=== PATIENT | female | born 1965 ===

== ENCOUNTER 2018-11-05 18:08 | Emergency (ER) | payer SELFPAY ==
[2018-11-05 18:26] VITALS: TEMP 98.2
--- NOTE | 2018-11-05 18:49 | ED PDOC ---
HPI: Abdomen Time Seen by Provider: 11/05/18 18:32 Chief Complaint (Nursing): Abdominal Pain Chief Complaint (Provider): Abdominal Pain History Per: Patient History/Exam Limitations: no limitations Onset/Duration Of Symptoms: Days (2x) Current Symptoms Are (Timing): Still Present Severity: Moderate Associated Symptoms: denies: Fever, Nausea, Vomiting, Diarrhea, Chest Pain, Other (shortness of breath) Additional Complaint(s): 53 year old female with a past medical history of gastritis presents to the ED for an evaluation of worsening abdominal pain that started yesterday. Patient states that she has had abdominal problems "all my life". Patient was seen at [facility] yesterday, and had blood in her ultrasound imaging. Patient was told that there was something wrong with her stomach. Patient states that she was not given medication for the pain, and has been taking motrin with no relief. Patient denies having fevers, chest pain, shortness of breath, vomiting, and diarrhea. PMD: None provided. Past Medical History Reviewed: Historical Data, Nursing Documentation, Vital Signs Vital Signs: Last Vital Signs Temp 98.2 F 11/05/18 18:21 Pulse 78 11/05/18 18:21 Resp 16 11/05/18 18:21 BP 159/94 H 11/05/18 18:21 Pulse Ox 100 11/05/18 18:21 - Medical History PMH: Gastritis - Surgical History Other surgeries: ovarian cystectomy - Family History Family History: States: No Known Family Hx - Social History Current smoker - smoking cessation education provided: No Alcohol: None Drugs: Denies - Home Medications Home Medications: Ambulatory Orders Medication Instructions Recorded Gabapentin [Neurontin] 100 mg PO TID 11/07/18 Omeprazole 20 mg PO DAILY 11/07/18 oxyCODONE/Acetaminophen [Percocet 1 tab PO Q6 #20 tab 11/07/18 5/325 mg Tab] - Allergies Allergies/Adverse Reactions: Allergies Allergy/AdvReac Type Severity Reaction Status Date / Time No Known Allergies Allergy Verified 11/05/18 18:19 Review of Systems ROS Statement: Except As Marked, All Systems Reviewed And Found Negative Constitutional: Negative for: Fever Cardiovascular: Negative for: Chest Pain Respiratory: Negative for: Shortness of Breath Gastrointestinal: Positive for: Abdominal Pain. Negative for: Nausea, Vomiting, Diarrhea Physical Exam - Reviewed Nursing Documentation Reviewed: Yes Vital Signs Reviewed: Yes - Physical Exam Appears: Positive for: Well, Non-toxic, In Acute Distress (moderate painful distress) Head Exam: Positive for: ATRAUMATIC, NORMOCEPHALIC Skin: Positive for: Normal Color, Warm, Dry Cardiovascular/Chest: Positive for: Regular Rate, Rhythm Respiratory: Positive for: Normal Breath Sounds. Negative for: Respiratory Distress Gastrointestinal/Abdominal: Positive for: Tenderness (generalized, mostly in upper abdomen). Negative for: Guarding, Rebound Neurologic/Psych: Positive for: Alert, Oriented (3x) - Laboratory Results Result Diagrams: 11/05/18 18:50 11/05/18 18:50 - ECG O2 Sat by Pulse Oximetry: 100 (RA) Pulse Ox Interpretation: Normal Medical Decision Making Medical Decision Makin:32 Initial impression: 53 year old female with acute on chronic abdominal pain. Initial plan: * EKG * CMP * lipase * upreg * udip * CBC w/ diff * PT and PTT * morphine 2 mg IV * urinalysis * reevaluation 19:00 Patient is being signed out to Triston Cha MD pending CT abdomen and pelvis, and reevaluation. Scribe Attestation: Documented Vamshi Churchill, acting as a scribe for Viji Campbell MD. Provider Scribe Attestation: All medical record entries made by the Scribe were at my direction and p ersonally dictated by me. I have reviewed the chart and agree that the record accurately reflects my personal performance of the history, physical exam, medical decision making, and the department course for this patient. I have also personally directed, reviewed, and agree with the discharge instructions and disposition. Disposition - Clinical Impression Clinical Impression: Abdominal pain, Gastritis - Disposition Disposition: Transfer of Care Disposition Time: 19:00 Condition: STABLE Instructions: Gastritis (DC) Forms: [employer] (Andorran) Print Language: MACEDONIAN
[2018-11-05 19:06] LABS: BASO % 0.3 % (0.0-2.0); EOS # 0.1 K/uL (0.0-0.7); EOS % 0.7 % (0.0-4.0); HEMOGLOBIN 12.1 g/dL (12.0-16.0); LYMPH # 1.4 K/uL (1.0-4.3); MEAN CELL VOLUME 90.8 fl (81.0-99.0); MEAN CORPUSCULAR HEMOGLOBIN 30.3 pg (27.0-31.0); MEAN CORPUSCULAR HGB CONC 33.4 g/dL (33.0-37.0); MONO # 0.8 K/uL (0.0-0.8); NEUT # 6.2 K/uL (1.8-7.0); NRBC % 0.1 % (0.0-0.0); RBC 3.99 Mil/uL (3.80-5.20); WHITE BLOOD COUNT 8.5 K/uL (4.8-10.8)
--- NOTE | 2018-11-05 19:07 | ED PDOC ---
- Laboratory Results Result Diagrams: 11/05/18 18:50 11/05/18 18:50 - ECG O2 Sat by Pulse Oximetry: 100 (RA) Medical Decision Making Medical Decision Makin:00 Patient is being signed out to me by Viji Campbell MD pending CT abdomen and pelvis, and reevaluation. 20:19 --CT ABD/pelvis FINDINGS: LUNG BASES: The lung bases appear clear. No pleural effusions are seen. LIVER: Unremarkable. GALLBLADDER AND BILE DUCTS: The gallbladder appears within normal limits. No radioopaque gallstones are seen. No biliary ductal dilatation is evident. PANCREAS: Unremarkable. SPLEEN: Unremarkable. ADRENAL GLANDS: Unremarkable. KIDNEYS, URETERS, AND BLADDER: Cannot rule out a small amount of free pelvic fluid, there is no contrast between the urinary bladder and in the retroverted uterus. STOMACH AND BOWEL: No evidence of acute diverticulitis. APPENDIX: The appendix is visualized and noninflammatory. There are no right lower quadrant inflammatory changes. PERITONEUM: No free fluid. No free air. LYMPH NODES: No lymphadenopathy is evident. VASCULATURE: No evidence of abdominal aortic aneurysm. BONES: No aggressive appearing osseous lesion. No acute osseous pathology evident. IMPRESSION: 1. Cannot rule out a small amount of free pelvic fluid, there is no contrast between the urinary bladder and in the retroverted uterus. 2. The appendix is visualized and noninflammatory. There are no right lower quadrant inflammatory changes. 3. No evidence of acute diverticulitis. 4. An inflammatory focus within the abdomen is not identified. 23:53 --Labs reviewed: no significant clinical abnormality. Upon provider reevaluation, patient is medically stable, reports improvement in symptoms, and requires no further treatment in the ED at this time. Patient will be discharged home with Rx for Bentyl and Nexium. She reports that she will follow-up with her established GI doctor as advised by provider. Counseling was provided and all qu estions were answered regarding diagnosis. There is agreement to discharge plan. Return if symptoms persist or worsen. Clinical Impression: Gastritis Scribe Attestation: Documented byRose Mary Churchill and Britta Lopez, acting as scribes for Triston Cha MD. Provider Scribe Attestation: All medical record entries made by the Scribe were at my direction and personally dictated by me. I have reviewed the chart and agree that the record accurately reflects my personal performance of the history, physical exam, medical decision making, and the department course for this patient. I have also personally directed, reviewed, and agree with the discharge instructions and disposition. Disposition Counseled Patient/Family Regarding: Studies Performed, Diagnosis, Need For Followup, Rx Given - Clinical Impression Clinical Impression: Abdominal pain, Gastritis - POA Present On Arrival: None - Disposition Disposition: Routine/Home Disposition Time: 23:53 Condition: STABLE Prescriptions: Dicyclomine [Bentyl] 20 mg PO Q12 PRN #20 tab PRN Reason: abdominal pain Esomeprazole Magnesium [Nexium] 20 mg PO QAM #14 ecc Instructions: Gastritis (DC) Forms: [employer] (Finnish) Print Language: GABONESE
[2018-11-05 19:09] LABS: SQUAMOUS EPITHIAL 2 /hpf (0-5); URINE BILIRUBIN NEGATIVE (NEGATIVE); URINE BLOOD MODERATE (NEGATIVE); URINE CLARITY CLEAR (Clear); URINE COLOR STRAW (YELLOW); URINE GLUCOSE (UA) NEG (NEGATIVE); URINE LEUKOCYTE ESTERASE NEG Leu/uL (Negative); URINE PROTEIN NEGATIVE (NEGATIVE); URINE UROBILINOGEN 0.2-1.0 mg/dL (0.2-1.0)
[2018-11-05 19:12] LABS: PROTHROMBIN TIME 11.9 Seconds (9.8-13.1)
[2018-11-05 19:15] LABS: PARTIAL THROMBOPLASTIN TIME 28.6 Seconds (25.6-37.1)
[2018-11-05 19:21] LABS: ALB/GLOB RATIO 1.3 (1.0-2.1); ALBUMIN 4.1 g/dL (3.5-5.0); ALT/SGPT 52 U/L (9-52); AST/SGOT 33 U/L (14-36); BLOOD UREA NITROGEN 11 mg/dl (7-17); CALCIUM 7.7 mg/dL (8.4-10.2); GFR NON-AFRICAN AMERICAN > 60; LIPASE 192 U/L (23-300)
[2018-11-05] MEDS ORDERED: Iohexol 300 100 ML IJ ONE (21:29)
[2018-11-05] MEDS ORDERED: Sodium Chloride 0.9% 50 ML IV ONE (21:29)
[2018-11-05] MEDS ORDERED: Sucralfate 1 gm/10 ml Oral Susp UD PO STA (23:24)
[2018-11-06] MEDS ORDERED: Sucralfate 1 gm/10 ml Oral Susp UD ONE (00:12)
[2018-11-06 00:16] VITALS: BP 121/68; PULSE 68; RESP 17
--- NOTE | 2018-11-06 17:27 | CT ---
Date of service: 11/05/2018 PROCEDURE: CT Abdomen and Pelvis HISTORY: Abdominal pain. COMPARISON: None. TECHNIQUE: Contiguous axial images of the abdomen and pelvis performed following intravenous injection of 95 cc Omnipaque 300 contrast material.. Coronal and Sagittal reformats generated. Radiation dose: Total exam DLP = 583.42 mGy-cm. This CT exam was performed using one or more of the following dose reduction techniques: Automated exposure control, adjustment of the mA and/or kV according to patient size, and/or use of iterative reconstruction technique. FINDINGS: LOWER THORAX: Mild passive/dependent type of atelectasis with ground-glass opacities possibly representing some air trapping. No evidence of effusion or basilar pneumothorax. Small hiatal hernia... LIVER: Mild-moderate fatty hepatic infiltration with some fatty sparing in the hepatic parenchyma surrounding the gallbladder... GALLBLADDER AND BILE DUCTS: Unremarkable. PANCREAS: Unremarkable. No mass. No ductal dilatation. SPLEEN: Unremarkable. No splenomegaly. ADRENALS: Apparent left adrenal hyperplasia or adrenal nodule measuring 11 mm. Follow-up MRI without contrast of the adrenal glands recommended KIDNEYS AND URETERS: Unremarkable. No stone or hydronephrosis. BLADDER: Grossly unremarkable. REPRODUCTIVE: Small left adnexal cyst measuring approximately 13 mm. APPENDIX: Normal appendix. BOWEL: Unremarkable. No obstruction. No gross mural thickening. PERITONEUM: Questionable small amount of free fluid in the pelvis. No evidence of free air. Small fat containing umbilical hernia.. LYMPH NODES: Unremarkable. No enlarged lymph nodes. VASCULATURE: Unremarkable. No aortic aneurysm. No aortic atherosclerotic calcification or mural plaque present. BONES: No fracture or destructive lesion. OTHER FINDINGS: None. IMPRESSION: Suspect small left adnexal cyst. Fatty hepatic infiltration. Question small amount of pelvic fluid. Apparent left adrenal hyperplasia or adrenal nodule measuring 11 mm. Follow-up MRI without contrast of the adrenal glands recommended. Note this report was placed in PA review folder for follow up.
--- NOTE | 2018-11-06 19:26 | CARD ---
APPROVED REPORT Date of service: 11/05/2018 EKG Measurement Heart [id number] <Conclusion> Normal sinus rhythm Normal ECG
[2018-11-10 11:21] VITALS: O2SAT 100
== END 2018-11-06 00:20 | disposition home or self-care (01) ==
LOC: H.ER 18:08
DX: R10.9 Unspecified abdominal pain (principal); K29.70 Gastritis, unspecified, without bleeding; G89.29 Other chronic pain
CPT/HCPCS: 74177; 80053; 81003; 83690; 85025; 85610; 85730; 93005; 96374; 96375; 96376; 99284; J1885; J2270; Q9967

== ENCOUNTER 2018-11-06 23:29 | Inpatient (IN) | payer SELFPAY ==
[2018-11-07] MEDS ORDERED: Sodium Chloride 0.9% 1,000 ML IV STA (00:13)
[2018-11-07] MEDS ORDERED: Morphine 4 MG/ML VIAL ONE ×2 (00:22→01:40)
[2018-11-07] MEDS ORDERED: Piperacillin/Tazobact 3.375 GM in Sodium Chloride 0.9% 100 ML IV STA (00:40)
[2018-11-07 00:43] LABS: BASO % 0.3 % (0.0-2.0); EOS # 0.1 K/uL (0.0-0.7); EOS % 0.6 % (0.0-4.0); HEMOGLOBIN 11.9 g/dL (12.0-16.0); LYMPH % 9.6 % (20.0-40.0); MEAN CELL VOLUME 91.3 fl (81.0-99.0); MEAN CORPUSCULAR HEMOGLOBIN 30.5 pg (27.0-31.0); MEAN CORPUSCULAR HGB CONC 33.3 g/dL (33.0-37.0); MEAN PLATELET VOLUME 9.3 fl (7.2-11.7); MONO # 0.8 K/uL (0.0-0.8); MONO % 7.1 % (0.0-10.0); NEUT # 8.9 K/uL (1.8-7.0); NEUT % 82.4 % (50.0-75.0); PLATELET COUNT 266 K/uL (130-400); RED CELL DISTRIBUTION WIDTH 15.2 % (11.5-14.5); WHITE BLOOD COUNT 10.8 K/uL (4.8-10.8)
[2018-11-07] MEDS ORDERED: Morphine 4 MG/ML VIAL IVP ONE (00:45)
--- NOTE | 2018-11-07 00:54 | ED PDOC ---
HPI: Abdomen Time Seen by Provider: 11/07/18 00:11 Chief Complaint (Nursing): Abdominal Pain Chief Complaint (Provider): Abdominal Pain History Per: Patient History/Exam Limitations: no limitations Associated Symptoms: Nausea Additional Complaint(s): 53 y/o female with history of gastritis presents to ER of revaluation of persistent abdominal pain associated with nausea. Patient reports she was seen before in an ED where her CT and labs showed no abnormality and was discharged with recommendation to follow up. Patient states pain worsened today prompting ED visit at [facility] earlier today where she had gallbladder US and diagnosed with gastritis. She reports pain is persistent and worse which prompted coming here from the other hospital. PMD: non provided Past Medical History Reviewed: Historical Data, Nursing Documentation, Vital Signs Vital Signs: Last Vital Signs Temp 98.3 F 11/06/18 23:53 Pulse 91 H 11/06/18 23:53 Resp 16 11/06/18 23:53 BP 151/76 H 11/06/18 23:53 Pulse Ox 98 11/06/18 23:53 - Medical History PMH: Gastritis - Surgical History Surgical History: No Surg Hx - Family History Family History: States: Unknown Family Hx - Social History Current smoker - smoking cessation education provided: No Alcohol: None Drugs: Denies - Home Medications Home Medications: Ambulatory Orders Medication Instructions Recorded Dicyclomine [Bentyl] 20 mg PO Q12 PRN #20 tab 11/05/18 Esomeprazole Magnesium [Nexium] 20 mg PO QAM #14 ecc 11/05/18 - Allergies Allergies/Adverse Reactions: Allergies Allergy/AdvReac Type Severity Reaction Status Date / Time No Known Allergies Allergy Verified 11/05/18 18:19 Review of Systems ROS Statement: Except As Marked, All Systems Reviewed And Found Negative Gastrointestinal: Positive for: Nausea, Abdominal Pain Physical Exam - Reviewed Nursing Documentation Reviewed: Yes Vital Signs Reviewed: Yes - Physical Exam Appears: Positive for: Non-toxic, Uncomfortable Head Exam: Positive for: ATRAUMATIC, NORMOCEPHALIC Skin: Positive for: Normal Color, Warm, Dry Neck: Positive for: Normal, Painless ROM, Supple Cardiovascular/Chest: Positive for: Regular Rate, Rhythm. Negative for: Murmur Respiratory: Positive for: Normal Breath Sounds. Negative for: Respiratory Dis tress Gastrointestinal/Abdominal: Positive for: Tenderness (Right upper quadrant) Back: Positive for: Normal Inspection. Negative for: L CVA Tenderness, R CVA Tenderness Extremity: Positive for: Normal ROM. Negative for: Pedal Edema, Deformity Neurologic/Psych: Positive for: Alert, Oriented (x3) - Laboratory Results Result Diagrams: 11/07/18 00:25 11/07/18 00:25 - ECG O2 Sat by Pulse Oximetry: 98 (RA) Pulse Ox Interpretation: Normal Medical Decision Making Medical Decision Making: Time: 11 Initial impression: 53 y/o female with persistent abdominal pain prompting multiple ED visits Initial plan: --Labs --IV Morphine 4 mg Time: 0148 Patient's US from [facility] showed undemonstrated gallstones in gallbladder associated with polycystic inflammation. Labs also significant for marked elevation in hepatic function. Case referred to surgery to Dr. Raya, patient will be admitted for acute cholecystitis. Scribe Attestation: Documented by Minda Sierra, acting as a scribe for Triston Cha MD. Provider Scribe Attestation: All medical record entries made by the Scribe were at my direction and personally dictated by me. I have reviewed the chart and agree that the record accurately reflects my personal performance of the history, physical exam, medical decision making, and the department course for this patient. I have also personally directed, reviewed, and agree with the discharge instructions and disposition. Disposition - Clinical Impression Clinical Impression: Acute cholecystitis - Patient ED Disposition Is Patient to be Admitted: Yes - Disposition Disposition Time: 01:48 Condition: FAIR Forms: [employer] (Pakistani)
[2018-11-07 00:58] LABS: ALB/GLOB RATIO 1.3 (1.0-2.1); ALBUMIN 4.1 g/dL (3.5-5.0); ALT/SGPT 342 U/L (9-52); AST/SGOT 529 U/L (14-36); BLOOD UREA NITROGEN 9 mg/dl (7-17); CALCIUM 7.8 mg/dL (8.4-10.2); GFR NON-AFRICAN AMERICAN > 60; LIPASE 151 U/L (23-300)
[2018-11-07 01:32] LABS: PROTHROMBIN TIME 11.7 Seconds (9.8-13.1)
[2018-11-07 01:35] LABS: PARTIAL THROMBOPLASTIN TIME 30.1 Seconds (25.6-37.1)
[2018-11-07] MEDS ORDERED: Piperacillin/Tazobact 3.375 gm Inj IVPB ONE (01:40)
[2018-11-07] MEDS ORDERED: Potassium Chloride 20 mEq ER Tab PO ONE ×2 (01:53→02:22)
--- NOTE | 2018-11-07 02:01 | CP.PCM.HP ---
History of Present Illness - History of Present Illness History of Present Illness: General Surgery - Dr. Maya 53 yo F w/ pmh of gastritis to presents to ED with worsening RUQ abdominal pain x2days. Pt states the pain started on Wednesday. She has been to multiple hospitals in the past 2 days for this pain but was discharged home. Pt was seen here yesterday and had a CT scan which was negative, and was then discharged home after her pain improved. Today pt states the pain became worse. She went to [facility] where she had a gallbladder U/S done and was then discharged. Pt states the pain persisted after she left that hospital so she decided to come back here. She describes the pain as a sharp pain in the RUQ abdomen, non-radiating, with associated nausea. She states the pain medicine m sandor it better but has worn off. She denies any aggravating factors. Pt also denies any Vomiting, Fevers, Chills, SOB, chest pains, Diarrhea, Dysuria, Hematuria. She admits to constipation since Wednesday. PMH: Gastritis, nephrolithiasis PSH: Left foot surgery, Ureteral stent Meds: Nexium NKDA Present on Admission - Present on Admission Any Indicators Present on Admission: No Review of Systems - Review of Systems All systems: reviewed and no additional remarkable complaints except (as per HPI) Past Patient History - Past Social History Alcohol: None Drugs: Denies - GASTROINTESTINAL Hx Gastritis: Yes - PSYCHIATRIC Hx Substance Use: No - SURGICAL HISTORY Hx Surgeries: No - ANESTHESIA Hx Anesthesia: No Meds Allergies/Adverse Reactions: Allergies Allergy/AdvReac Type Severity Reaction Status Date / Time No Known Allergies Allergy Verified 11/05/18 18:19 Physical Exam - Constitutional Appears: In Acute Distress - Head Exam Head Exam: ATRAUMATIC, NORMAL INSPECTION, NORMOCEPHALIC - Eye Exam Eye Exam: Normal appearance - ENT Exam ENT Exam: Mucous Membranes Dry - Respiratory Exam Respiratory Exam: NORMAL BREATHING PATTERN. absent: Respiratory Distress - Cardiovascular Exam Cardiovascular Exam: Tachycardia, REGULAR RHYTHM - GI/Abdominal Exam GI & Abdominal Exam: Guarding, Soft, Tenderness (RUQ tenderness + Mcallister sign). absent: Distended, Hernia, Rebound, Rigid - Neurological Exam Neurological exam: Alert, Oriented x3 - Psychiatric Exam Psychiatric exam: Normal Affect, Normal Mood - Skin Skin Exam: Dry, Intact Results - Vital Signs Recent Vital Signs: Last Vital Signs Temp 98.3 F 12/23/18 23:53 Pulse 91 H 11/06/18 23:53 Resp 16 11/06/18 23:53 BP 151/76 H 11/06/18 23:53 Pulse Ox 98 11/07/18 01:51 - Labs Result Diagrams: 11/07/18 00:25 11/07/18 00:25 Labs: Laboratory Results - last 24 hr 11/07/18 11/07/18 11/07/18 00:25 00:25 01:15 WBC 10.8 RBC 3.90 Hgb 11.9 L Hct 35.6 MCV 91.3 MCH 30.5 MCHC 33.3 RDW 15.2 H Plt Count 266 MPV 9.3 Neut % (Auto) 82.4 H Lymph % (Auto) 9.6 L Throckmorton % (Auto) 7.1 Eos % (Auto) 0.6 Baso % (Auto) 0.3 Neut # (Auto) 8.9 H Lymph # (Auto) 1.0 Throckmorton # (Auto) 0.8 Eos # (Auto) 0.1 Baso # (Auto) 0.0 PT INR APTT Sodium 139 Potassium 3.3 L Chloride 103 Carbon Dioxide 29 Anion Gap 10 BUN 9 Creatinine 0.6 L Est GFR ( Amer) > 60 Est GFR (Non-Af Amer) > 60 Random Glucose 104 Lactic Acid 0.7 Calcium 7.8 L Total Bilirubin 1.5 H AST 529 H D ALT 342 H D Alkaline Phosphatase 121 Total Protein 7.2 Albumin 4.1 Globulin 3.1 Albumin/Globulin Ratio 1.3 Lipase 151 11/07/18 01:15 WBC RBC Hgb Hct MCV MCH MCHC RDW Plt Count MPV Neut % (Auto) Lymph % (Auto) Throckmorton % (Auto) Eos % (Auto) Baso % (Auto) Neut # (Auto) Lymph # (Auto) Throckmorton # (Auto) Eos # (Auto) Baso # (Auto) PT 11.7 INR 1.0 APTT 30.1 Sodium Potassium Chloride Carbon Dioxide Anion Gap BUN Creatinine Est GFR ( Amer) Est GFR (Non-Af Amer) Random Glucose Lactic Acid Calcium Total Bilirubin AST ALT Alkaline Phosphatase Total Protein Albumin Globulin Albumin/Globulin Ratio Lipase - Imaging and Cardiology US - abdomen Status: Report reviewed by me Additional comment: Report from [facility] provided by pt showing 3.1cm gallstone lodged in the neck of the gallbladder with wall thickening and surrounding pericholecystic fluid indicative for acute cholecystitis Assessment & Plan - Assessment and Plan (Free Text) Assessment: 53 yo F w/ acute cholecystitis -Admit to surgical service under Dr. Maya -NPO, IVF, IV Abx -Repeat U/S here -Pain control prn, Anti-emetics prn -Will plan for surgery later today Dw Dr Francesco Raya PGY4
[2018-11-07] MEDS: Lactated Ringer's 1,000 ML IV SCH ×2 (03:14→13:15)
[2018-11-07 03:31] LABS: LYMPHOCYTE 6 % (20-50); MONOCYTE 7 % (0-10); NEUTROPHIL 87 % (42-75); PLATELET ESTIMATE NORMAL (NORMAL); TOTAL CELLS COUNTED 100
[2018-11-07 03:34] LABS: ANISOCYTOSIS SLIGHT; OVALOCYTES SLIGHT; POIKILOCYTOSIS SLIGHT; TEARDROP CELLS SLIGHT
[2018-11-07 06:43] LABS: ALB/GLOB RATIO 1.2 (1.0-2.1); ALBUMIN 3.5 g/dL (3.5-5.0); ALT/SGPT 539 U/L (9-52); AST/SGOT 707 U/L (14-36); BLOOD UREA NITROGEN 8 mg/dl (7-17); CALCIUM 7.2 mg/dL (8.4-10.2); GFR NON-AFRICAN AMERICAN > 60
[2018-11-07] MEDS ORDERED: ceFAZolin IV 1 gm in Dextrose 0 GM/0 ML BAG IVPB ONE (07:12)
[2018-11-07] MEDS ORDERED: Bupivacaine HCl 0.25% PF (30 ml) Inj ONE (07:14)
[2018-11-07] MEDS: Piperacillin/Tazobact 3.375 GM in Sodium Chloride 0.9% 100 ML IVPB SCH ×3 (08:31→19:33)
--- NOTE | 2018-11-07 08:41 | US ---
Date of service: 11/07/2018 HISTORY: Abdominal pain COMPARISON: None. TECHNIQUE: Grayscale imaging was performed. FINDINGS: LIVER: Measures 19.0 cm in length. There is diffuse increased echogenicity of the liver parenchyma. No mass. No intrahepatic bile duct dilatation. GALLBLADDER: There is a 2.0 centimeter stone in the region of the neck of the gallbladder. There is diffuse gallbladder wall thickening and pericholecystic fluid. The sonographic Perkins's sign is positive. COMMON BILE DUCT: Measures 6.0 mm. No stones. No dilatation. PANCREAS: Unremarkable as visualized. No mass. No ductal dilatation. RIGHT KIDNEY: Measures 10.6 cm in length. Normal echogenicity. No calculus, mass, or hydronephrosis. AORTA: No aneurysmal dilatation. IVC: Unremarkable. OTHER FINDINGS: None . IMPRESSION: Findings are most compatible with acute calculus cholecystitis. Mild hepatomegaly. Fatty liver.
[2018-11-07 08:46] LABS: SQUAMOUS EPITHIAL 1 /hpf (0-5); URINE BILIRUBIN NEGATIVE (NEGATIVE); URINE BLOOD MODERATE (NEGATIVE); URINE CLARITY CLEAR (Clear); URINE COLOR YELLOW (YELLOW); URINE GLUCOSE (UA) NEG (NEGATIVE); URINE LEUKOCYTE ESTERASE NEG Leu/uL (Negative); URINE PROTEIN NEGATIVE (NEGATIVE); URINE UROBILINOGEN 0.2-1.0 mg/dL (0.2-1.0)
--- NOTE | 2018-11-07 09:59 | RAD ---
Date of service: 11/07/2018 HISTORY: pre-op COMPARISON: No prior. FINDINGS: LUNGS: The lungs are well inflated and clear. PLEURA: No pleural effusions or pneumothorax. CARDIOVASCULAR: The heart is normal in size. No aortic atherosclerotic calcification present. OSSEOUS STRUCTURES: Within normal limits for the patient's age. VISUALIZED UPPER ABDOMEN: Normal. OTHER FINDINGS: None. IMPRESSION: No active pulmonary disease.
[2018-11-07] MEDS ORDERED: Propofol 10 mg/ml Inj (20 ML) ONE (10:11)
[2018-11-07] MEDS ORDERED: Succinylcholine 200 mg/10 ml Inj IV ONE (10:12)
[2018-11-07] MEDS ORDERED: Rocuronium 10 mg/ml (5 ml) ONE (10:12)
[2018-11-07] MEDS ORDERED: Dexamethasone 4 mg/1 ml ONE (10:13)
[2018-11-07] MEDS ORDERED: Iohexol 240 200 ML ONE (10:15)
[2018-11-07] MEDS ORDERED: Lactated Ringer's 1,000 ML IV ONE ×2 (11:00→13:36)
[2018-11-07] MEDS ORDERED: Bupivacaine 0.25% Inj(30mL) IJ ONE (11:20)
[2018-11-07] MEDS ORDERED: Neostigmine 1:1000 (1 mg/ml) Inj ONE (12:36)
[2018-11-07] MEDS ORDERED: Oxycodone/Acetaminophen 5/325 mg Tab PO PRN ×2 (13:19)
[2018-11-07] MEDS ORDERED: HYDROmorphone 0.5 mg/0.5 ml ISec IVP PRN (13:21)
--- NOTE | 2018-11-07 13:25 | PCM.SURG1 ---
Surgeon's Initial Post Op Note - Surgeon's Notes Surgeon: Dr Maya Wire Tinner: Dr Sadler PGY3, Dr Ochoa PGY4, Dr Reed PGY1 Type of Anesthesia: General Endo Anesthesia Administered By: Dr Sundar Baron. Pre-Operative Diagnosis: Acute Cholecystitis Operative Findings: acutely inflammed gallbladder. hydrops Post-Operative Diagnosis: acute on chronic cholecystitis Operation Performed: laparoscopic cholecystectomy. lysis of adhesions Specimen/Specimens Removed: gallbladder Estimated Blood Loss: EBL {In ML}: 10 Blood Products Given: N/A Drains Used: No Drains Post-Op Condition: Good Date of Surgery/Procedure: 11/07/18 Time of Surgery/Procedure: 13:29
--- NOTE | 2018-11-07 17:06 | CP.PCM.DIS ---
Provider - Provider Date of Admission: 11/07/18 01:12 Attending physician: Mason Maya MD Time Spent in preparation of Discharge (in minutes): 40 Hospital Course - Lab Results Lab Results: Most Recent Lab Values WBC 10.8 K/uL (4.8-10.8) 11/07/18 00:25 RBC 3.90 Mil/uL (3.80-5.20) 11/07/18 00:25 Hgb 11.9 g/dL (12.0-16.0) L 11/07/18 00:25 Hct 35.6 % (34.0-47.0) 11/07/18 00:25 MCV 91.3 fl (81.0-99.0) 11/07/18 00:25 MCH 30.5 pg (27.0-31.0) 11/07/18 00:25 MCHC 33.3 g/dL (33.0-37.0) 11/07/18 00:25 RDW 15.2 % (11.5-14.5) H 11/07/18 00:25 Plt Count 266 K/uL (130-400) 11/07/18 00:25 MPV 9.3 fl (7.2-11.7) 11/07/18 00:25 Neut % (Auto) 82.4 % (50.0-75.0) H 11/07/18 00:25 Lymph % (Auto) 9.6 % (20.0-40.0) L 11/07/18 00:25 Reynolds % (Auto) 7.1 % (0.0-10.0) 11/07/18 00:25 Eos % (Auto) 0.6 % (0.0-4.0) 11/07/18 00:25 Baso % (Auto) 0.3 % (0.0-2.0) 11/07/18 00:25 Neut # (Auto) 8.9 K/uL (1.8-7.0) H 11/07/18 00:25 Lymph # (Auto) 1.0 K/uL (1.0-4.3) 11/07/18 00:25 Reynolds # (Auto) 0.8 K/uL (0.0-0.8) 11/07/18 00:25 Eos # (Auto) 0.1 K/uL (0.0-0.7) 11/07/18 00:25 Baso # (Auto) 0.0 K/uL (0.0-0.2) 11/07/18 00:25 Neutrophils % (Manual) 87 % (42-75) H 11/07/18 00:25 Lymphocytes % (Manual) 6 % (20-50) L 11/07/18 00:25 Monocytes % (Manual) 7 % (0-10) 11/07/18 00:25 Platelet Estimate Normal (NORMAL) 11/07/18 00:25 Poikilocytosis (manual Slight 11/07/18 00:25 Anisocytosis (manual) Slight 11/07/18 00:25 Tear Drop Cells Slight 11/07/18 00:25 Ovalocytes Slight 11/07/18 00:25 PT 11.7 Seconds (9.8-13.1) 11/07/18 01:15 INR 1.0 11/07/18 01:15 APTT 30.1 Seconds (25.6-37.1) 11/07/18 01:15 Sodium 140 mmol/l (132-148) 11/07/18 05:45 Potassium 3.8 MMOL/L (3.6-5.0) 11/07/18 05:45 Chloride 105 mmol/L (98-107) 11/07/18 05:45 Carbon Dioxide 30 mmol/L (22-30) 11/07/18 05:45 Anion Gap 9 (10-20) L 11/07/18 05:45 BUN 8 mg/dl (7-17) 11/07/18 05:45 Creatinine 0.6 mg/dl (0.7-1.2) L 11/07/18 05:45 Est GFR ( Amer) > 60 11/07/18 05:45 Est GFR (Non-Af Amer) > 60 11/07/18 05:45 Random Glucose 107 mg/dL (65-105) H 11/07/18 05:45 Lactic Acid 0.7 MMOL/L (0.7-2.1) 11/07/18 01:15 Calcium 7.2 mg/dL (8.4-10.2) L 11/07/18 05:45 Phosphorus 3.4 mg/dl (2.5-4.5) 11/07/18 05:45 Magnesium 2.3 MG/DL (1.6-2.3) 11/07/18 05:45 Total Bilirubin 1.7 mg/dl (0.2-1.3) H 11/07/18 05:45 AST 707 U/L (14-36) H D 11/07/18 05:45 ALT 539 U/L (9-52) H D 11/07/18 05:45 Alkaline Phosphatase 114 U/L (38-126) 11/07/18 05:45 Total Protein 6.3 G/DL (6.3-8.2) 11/07/18 05:45 Albumin 3.5 g/dL (3.5-5.0) 11/07/18 05:45 Globulin 2.8 gm/dL (2.2-3.9) 11/07/18 05:45 Albumin/Globulin Ratio 1.2 (1.0-2.1) 11/07/18 05:45 Lipase 151 U/L (23-300) 11/07/18 00:25 Urine Color Yellow (YELLOW) 11/07/18 06:52 Urine Clarity Clear (Clear) 11/07/18 06:52 Urine pH 7.0 (5.0-8.0) 11/07/18 06:52 Ur Specific [place] 1.016 (1.003-1.030) 11/07/18 06:52 Urine Protein Negative mg/dL (NEGATIVE) 11/07/18 06:52 Urine Glucose (UA) Neg mg/dL (NEGATIVE) 11/07/18 06:52 Urine Ketones Trace mg/dL (NEGATIVE) 11/07/18 06:52 Urine Blood Moderate (NEGATIVE) 11/07/18 06:52 Urine Nitrate Negative (NEGATIVE) 11/07/18 06:52 Urine Bilirubin Negative (NEGATIVE) 11/07/18 06:52 Urine Urobilinogen 0.2-1.0 mg/dL (0.2-1.0) 11/07/18 06:52 Ur Leukocyte Esterase Neg Sheree/uL (Negative) 11/07/18 06:52 Urine RBC (Auto) 3 /hpf (0-3) 11/07/18 06:52 Urine Microscopic WBC 1 /hpf (0-5) 11/07/18 06:52 Ur Squamous Epith Cells 1 /hpf (0-5) 11/07/18 06:52 Urine HCG, Qual Negative (NEGATIVE) 11/07/18 08:03 Blood Type O POSITIVE 11/07/18 08:34 Blood Type Confirm O POSITIVE 11/07/18 08:55 Antibody Screen Negative 11/07/18 08:34 BBK History Checked No verified bt 11/07/18 08:34 - Hospital Course Hospital Course: 53 yo F w/ pmh of gastritis to presents to ED with worsening RUQ abdominal pain x2days. Pt states the pain started on Wednesday. She has been to multiple hospitals in the past 2 days for this pain but was discharged home. Pt was seen here yesterday and had a CT scan which was negative, and was then discharged home after her pain improved. Today pt states the pain became worse. She went to [facility] where she had a gallbladder U/S done and was then discharged. Pt states the pain persisted after she left that hospital so she decided to come back here. She describes the pain as a sharp pain in the RUQ abdomen, non-radiating, with associated nausea. She states the pain medicine made it better but has worn off. She denies any aggravating factors. Pt also denies any Vomiting, Fevers, Chills, SOB, chest pains, Diarrhea, Dysuria, Hematuria. She admits to constipation since Wednesday. PMH: Gastritis, nephrolithiasis PSH: Left foot surgery, Ureteral stent Meds: Nexium NKDA Patient was diagnosed with Cholecystitis as seen on Abdominal Ultrasound. Patient went for Laparoscopic Cholecystectomy on 11/07/18 with was uncomplicated. Aspiration of gallbladder showed clear fluid. Gallbladder was very edematous and intrahepatic. Post op patient is doing well, tolerating diet and minimal pain. Discharge Exam - Head Exam Head Exam: ATRAUMATIC, NORMAL INSPECTION, NORMOCEPHALIC - Respiratory Exam Respiratory Exam: Clear to PA & Lateral, NORMAL BREATHING PATTERN - Cardiovascular Exam Cardiovascular Exam: REGULAR RHYTHM, +S1, +S2 - GI/Abdominal Exam GI & Abdominal Exam: Soft. absent: Distended, Firm, Guarding, Rebound, Rigid, Tenderness Additional comments: incision CDI - Neurological Exam Neurological exam: Alert, Oriented x3 - Skin Skin Exam: Dry, Intact, Normal Color, Warm Discharge Plan - Discharge Medications Prescriptions: oxyCODONE/Acetaminophen [Percocet 5/325 mg Tab] 1 tab PO Q6 #20 tab - Follow Up Plan Condition: FAIR Disposition: HOME/ ROUTINE Instructions: Cholecystitis (DC) Additional Instructions: 1) Please follow up with Dr. Maya in 2 weeks 2) Please take medications as prescribed 3) Please do not drive while taking opioid medications 4) May shower but do not bath 5) Glue on incisions will fall off on their own, do not peel off 6) Please return to ED for any worsening symptoms Referrals: Mason Maya MD [Staff Provider] -
[2018-11-07 20:09] VITALS: BP 128/74; PULSE 74; RESP 20; TEMP 99.5; O2SAT 97
--- NOTE | 2018-11-07 20:47 | CARD ---
APPROVED REPORT Date of service: 11/07/2018 EKG Measurement Heart [id number] <Conclusion> Normal sinus rhythm Normal ECG
--- NOTE | 2018-11-10 14:02 | OP ---
PROCEDURE DATE: 11/10/2018 SURGEON: Mason Maya MD ASSISTANTS: Obed Sadler DO; Jose Ochoa DO; Hieu Reed DO ANESTHESIA: General. ANESTHESIOLOGIST: Art Kwok MD PREOPERATIVE DIAGNOSIS: Acute cholecystitis. POSTOPERATIVE DIAGNOSIS: Acute cholecystitis. PROCEDURE: Laparoscopic cholecystectomy. DESCRIPTION OF OPERATION: With the patient in the supine position after administration of general anesthesia intubation, the abdomen was prepped and draped in the usual sterile fashion. A supraumbilical transverse incision was made through the skin set for size of a 11 mm laparoscopic trocar. A Veress needle puncture was performed through that incision with insufflation to 15 mL water pressure of CO2. Upon insufflation, the abdomen was entered using a Visiport with trocar and camera system. Upon entry to inside the abdomen, panoramic view was taken of the abdomen to make sure there was no bowel injury on entry. Camera was placed to visualize the gallbladder. It was noted that the gallbladder was very edematous and very intrahepatic and also distended. Needle was used to aspirate the gallbladder and its contents. Return from the gallbladder showed clear liquid fluid indicative of hydrops. Upon decompression of the gallbladder, three more 5-mm ports were placed, one subxiphoid and two along the subcostal margins. These were all done under direct visualization. A grasper was used to grasp the fundus of the gallbladder and retract cephalad. Then, the infundibulum was grasped and retracted laterally to the right. Adhesed omentum to the gallbladder was dissected off the gallbladder using a [place] dissector. The omentum cleared off the gallbladder very smoothly without major bleeding or damage. Dissection now began in the cystic triangle with laparoscopic [place]. We dissected off the peritoneum and the fat in the cystic triangle until the cystic duct was identified going directly into the gallbladder. Further dissection continued with the [place] to identify the cystic artery, which was also seen going directly along the gallbladder. Adhesive tissue behind both structures were dissected off also. Upon visualization of the cystic triangle, a clip was then placed on the cystic duct close to the gallbladder and also distal to the gallbladder. Two clips were distal and one was proximal to the gallbladder. Laparoscopic scissors was used to transect the cystic duct. On the cystic artery, some clips were placed distal to the gallbladder and one proximal to the gallbladder on the cystic artery. Laparoscopic scissors was also used to transect the cystic artery. Upon transection of both the cystic duct and the cystic artery, the gallbladder was dissected free from the liver bed using electrocautery. The liver bed was inspected for hemostasis and any oozing was immediately taken care of by electrocautery. The gallbladder was taken as specimen in a retrieval bag and removed via the umbilical port site. The gallbladder was noted to contain stones. The right upper quadrant was irrigated and suctioned until clear fluid was seen coming out of the suction tube. Hemostasis was achieved. The pneumoperitoneum was relieved and the trocars were removed under direct visualization. The umbilical port was closed with a [id number] suture using 0 Vicryl stitch on the fascia. All 4 incisions were closed with 4-0 Monocryl and Dermabond was used for superficial dressing. The patient tolerated the procedure well and was transferred to the recovery room in stable condition. Estimated blood loss on the procedure was 10 mL. Obed Sadler DO Mason Maya MD MTDBrianna
== END 2018-11-07 22:00 | disposition home or self-care (01) | DRG 418 ==
LOC: H.ER 23:29 → H.ERHOLD 11-07 01:12 → H.PEDS 11-07 02:43
PROVIDERS: ADMIT Surgery; ATTEND Surgery
PROC: 0FT44ZZ Resection of Gallbladder, Percutaneous Endoscopic Approach (ICD-10-PCS; principal; 2018-11-07 10:30)
DX: K80.12 Calculus of gallbladder with acute and chronic cholecystitis without obstruction (principal); K82.1 Hydrops of gallbladder; K29.70 Gastritis, unspecified, without bleeding; K59.00 Constipation, unspecified; Z87.442 Personal history of urinary calculi